=== PATIENT | male | born 1995 | race American Indian/Alaskan Native ===

== ENCOUNTER 2020-06-20 07:46 | Emergency (ER) | payer BC ==
[2020-06-20] MEDS ORDERED: IBUPROFEN 800 MG TAB PO ONE (07:55)
--- NOTE | 2020-06-20 08:34 | XRay Report ---
LEFT FOOT 3 VIEWS INDICATION / CLINICAL INFORMATION: lateral pain, no injury COMPARISON: None available. FINDINGS: BONES / JOINT(S): Comminuted fracture base of the fifth metatarsal. No significant arthritis. SOFT TISSUES: No significant abnormality. ADDITIONAL FINDINGS: None. Signer Name: Kody Garcia MD Signed: 06/20/2020 8:30 AM Workstation Name: [email or web address]
--- NOTE | 2020-06-20 09:02 | Emergency Department Report ---
ED General Adult HPI - General Chief complaint: Extremity Injury, Lower Stated complaint: INJURED LT FOOT Time Seen by Provider: 06/20/20 07:50 Source: patient Mode of arrival: Ambulatory Limitations: No Limitations - History of Present Illness Initial comments: 25-year-old -Thai male patient presents with complaints of left lateral foot pain x 1 day. Patient states he believes he hit his foot on something, but is unsure. He rates his current pain as a 4/10 in severity and states it worsens with ambulation. He denies any numbness/tingling/weakness in his foot or color changes. Severity scale (0 -10): 4 - Related Data Previous Rx's Medication Instructions Recorded Last Taken Type Ibuprofen [Motrin 800 MG tab] 800 mg PO Q8HR PRN #20 tablet 06/20/20 Unknown Rx Allergies Allergy/AdvReac Type Severity Reaction Status Date / Time No Known Allergies Allergy Unverified 06/20/20 07:47 ED Review of Systems ROS: Stated complaint: INJURED LT FOOT Other details as noted in HPI Constitutional: denies: chills, diaphoresis, fever, malaise, weakness Respiratory: denies: cough, shortness of breath Cardiovascular: denies: chest pain Endocrine: denies: excessive sweating Gastrointestinal: denies: abdominal pain, nausea, vomiting Genitourinary: denies: dysuria, frequency Musculoskeletal: joint swelling, arthralgia Neurological: denies: headache, numbness, paresthesias Hematological/Lymphatic: denies: swollen glands ED Past Medical Hx - Past Medical History Previous Medical History?: No - Surgical History Past Surgical History?: No - Social History Smoking Status: Never Smoker Substance Use Type: None - Medications Home Medications: Home Medications Medication Instructions Recorded Confirmed Last Taken Type Ibuprofen [Motrin 800 MG tab] 800 mg PO Q8HR PRN #20 tablet 06/20/20 Unknown Rx ED Physical Exam - General Limitations: No Limitations General appearance: alert, in no apparent distress - Head Head exam: Present: atraumatic, normocephalic - Eye Eye exam: Present: normal appearance. Absent: scleral icterus - Neck Neck exam: Present: normal inspection - Respiratory Respiratory exam: Absent: respiratory distress - Cardiovascular Cardiovascular Exam: Present: tachycardia - Extremities Exam Extremities exam: Present: full ROM, other (Tenderness to palpation noted at the lateral portion of the fifth metatarsal without obvious swelling, bruising, or erythema noted. Pedal pulses are normal. Normal sensation and range of motion of the foot and ankle noted) - Back Exam Back exam: Present: full ROM - Neurological Exam Neurological exam: Present: alert, oriented X3, normal gait - Psychiatric Psychiatric exam: Present: normal affect, normal mood - Skin Skin exam: Present: warm, dry, intact, normal color. Absent: rash ED Course Vital Signs 06/20/20 06/20/20 07:49 12:14 Temperature 98.7 F Pulse Rate 120 H 84 Respiratory 16 16 Rate Blood Pressure 142/80 Blood Pressure 124/82 [Left] O2 Sat by Pulse 97 96 Oximetry - Procedure Description Procedures done: Posterior ankle splint applied to left foot/ankle. Patient tolerated procedure well. He denies any pain or discomfort with the splint. He has normal perfusion and sensation of the toes post splint application ED Medical Decision Making - Radiology Data Radiology results: report reviewed LEFT FOOT 3 VIEWS INDICATION / CLINICAL INFORMATION: lateral pain, no injury COMPARISON: None available. FINDINGS: BONES / JOINT(S): Comminuted fracture base of the fifth metatarsal. No significa nt arthritis. SOFT TISSUES: No significant abnormality. ADDITIONAL FINDINGS: None. - Medical Decision Making 25-year-old -Thai male patient presents with complaints of left lateral foot pain x 1 day. Patient states he believes he hit his foot on something, but is unsure. He rates his current pain as a 4/10 in severity and states it worsens with ambulation. He denies any numbness/tingling/weakness in his foot or color changes. X-ray shows comminuted fracture at the base of the fifth metatarsal. Patient placed in posterior splint and provided with crutches. Recommend follow-up with orthopedics within 2 days. Referral provided. Heart rate noted to be elevated at 114-patient states he has anxiety and white coat syndrome. He denies any chest pain, shortness of breath, fever/chills/sweats, or other symptoms. Patient states he is otherwise feeling well. No past medical history per patient. No signs of compartment syndrome on exam. Recommend high water intake at home. Discussed signs and symptoms that should prompt immediate return to the emergency department in detail with patient who verbalized understanding. Critical care attestation.: If time is entered above; I have spent that time in minutes in the direct care of this critically ill patient, excluding procedure time. ED Disposition Clinical Impression: Fracture of base of fifth metatarsal bone of left foot Qualifiers: Encounter type: initial encounter Fracture type: closed Qualified Code(s): S92.352A - Displaced fracture of fifth metatarsal bone, left foot, initial encounter for closed fracture Disposition: DC- TO HOME OR SELFCARE Is pt being admited?: No Condition: Stable Instructions: Metatarsal Fracture, Cast or Splint Care, Adult Prescriptions: Ibuprofen [Motrin 800 MG tab] 800 mg PO Q8HR PRN #20 tablet PRN Reason: pain Referrals: [facility] [Provider Group] - 06/23/20 Forms: Work/School Release Form(ED)
[2020-06-20 12:15] VITALS: BP 124/82
== END 2020-06-20 12:21 | disposition home or self-care (01) ==
LOC: ED 07:46
DX: S92.352A Displaced fracture of fifth metatarsal bone, left foot, initial encounter for closed fracture (principal); Z79.1 Long term (current) use of non-steroidal anti-inflammatories (NSAID); W22.8XXA Striking against or struck by other objects, initial encounter; Y93.89 Activity, other specified; Y92.89 Other specified places as the place of occurrence of the external cause; Y99.8 Other external cause status